=== PATIENT | male | born 1945 | race Two or more races ===

== ENCOUNTER 2024-12-12 20:48 | Inpatient (IN) | payer OTHER, MEDICAID ==
[~2024-12-12] VITALS: Ht 177.8 cm; Wt 60.0 kg
[2024-12-12 21:30] VITALS: PULSE 92; RESP 18; O2SAT 94
--- NOTE | 2024-12-12 22:11 | ED.PDOC ---
History of Present Illness HPI Comments 79-year-old male who came to ER via EMS for altered level of consciousness/fever. Patient is bed-bound with indwelling Rosales catheter. Patient accompanied by granddaughter who gives history for us. Since patient was just discharged yesterday at [facility], for UTI and sepsis, midline inserted for antibiotics. Granddaughter was concerned that patient was discharged still with fever. At home patient appeared to have a seizure episode, noted to be weak, lethargic, with an axillary temperature 102 F Chief Complaint: ALOC Time Seen by MD: 22:11 Reviewed Notes: Emergency Dispatch Operator Notes Allergies: Coded Allergies: NO KNOWN ALLERGIES (Unverified , 12/12/24) Information Source: Relative Mode of Arrival: Ambulatory Severity: Moderate Timing: Hours Duration: Since onset Past Medical History PAST MEDICAL HISTORY: CVA, UTI'S Past Medical History (Other): Bed-bound, sepsis Surgical History: Denies all surgeries Family History Family History: Reviewed,noncontributory to illness Social History Smoker: Non-Smoker Alcohol: Denies ETOH Use Drugs: Denies Drug Use Lives In: Home Constitutional: reports: fever, weakness; denies: chills, diaphoresis, fatigue, malaise, sweats, others EENTM: denies: blurred vision, double vision, ear bleeding, ear discharge, ear drainage, ear pain, ear ringing, eye pain, eye redness, hearing loss, mouth pain, mouth swelling, nasal discharge, nose bleeding, nose congestion, nose pain, photophobia, tearing, throat pain, throat swelling, voice changes, others Respiratory: reports: cough; denies: hemoptysis, orthopnea, SOB at rest, shortness of breath, SOB with excertion, stridor, wheezing, others Cardiovascular: denies: chest pain, dizzy spells, diaphoresis, Dyspnea on exertion, edema, irregular heart beat, left arm pain, lightheadedness, p alpitations, PND, syncope, others Gastrointestinal: denies: abdomen distended, abdominal pain, blood streaked bowels, constipated, diarrhea, dysphagia, difficulty swallowing, hematemesis, melena, nausea, poor appetite, poor fluid intake, rectal bleeding, rectal pain, vomiting, others Genitourinary: denies: burning, dysuria, flank pain, frequency, hematuria, incontinence, penile discharge, penile sore, pain, testicle pain, testicle swelling, urgency, others Neurological: reports: seizure; denies: dizziness, fainting, headache, left sided numbness, left sided weakness, numbness, paresthesia, pre-existing deficit, right sided numbness, right sided weakness, speech problems, tingling, tremors, weakness, others Musculoskeletal: denies: back pain, gout, joint pain, joint swelling, muscle pain, muscle stiffness, neck pain, others Integumetry: denies: bruises, change in color, change in hair/nails, dryness, laceration, lesions, lumps, rash, wounds, others Allergic/Immunocompromised: denies: Difficulty Healing, Frequent Infections, Hives, Itching, others Hematologic/Lymphatic: denies: anemia, blood clots, easy bleeding, easy bruising, swollen glands, others Endocrine: denies: excessive hunger, excessive sweating, excessive thirst, excessive urination, flushing, intolerance to cold, intolerance to heat, unexplained weight gain, unexplained weight loss, others Psychiatric: denies: anxiety, bipolar disorder, depression, hopeless, panic disorder, schizophrenia, sleepless, suicidal, others Physical Exam General Appearance: No Apparent Distress, Normal HEENT: Normal ENT Inspection, Pharynx Normal, TMs Normal Neck: Full Range of Motion, Non-Tender, Normal, Normal Inspection Respiratory: Chest Non-Tender, Lungs Clear, No Accessory Muscle Use, No Respiratory Distress, Normal Breath Sounds Cardiovascular: No Edema, No JVD, No Murmur, No Gallop, Normal Peripheral Pulses, Regular Rate/Rhythm Breast Exam: Deferred Gastrointestinal: No Organomegaly, Non Tender, No Pulsatile Mass, Normal Bowel Sounds, Soft Genitalia: Deferred Pelvic: Deferred Rectal: Deferred Extremities: No calf tenderness, Normal capillary refill, Normal inspection, Normal range of motion, Non-tender, No pedal edema Musculoskeletal : Apperance: Normal Neurologic: Alert, billing services manager II-XII nml as Tested, No Motor Deficits, Normal Affect, Normal Mood, No Sensory Deficits Cerebellar Function: Normal Reflexes: Normal Skin: Dry, Normal Color, Warm Lymphatic: No Adenopathy Was a procedure done? Was a procedure done?: No Differential Dx Considerations may include: Anemia, electrolyte imbalance, urinary tract infection, sepsis, pneumonia, bed- bound, encephalopathy X-Ray, Labs, Meds, VS Vital Signs Date Time Temp Pulse Resp B/P (MAP) Pulse Ox O2 Delivery O2 Flow Rate FiO2 12/12/24 21:30 98.0 92 18 107/70 (82) 94 98.0 12/12/24 21:30 92 18 94 Room Air* 0 21 12/12/24 20:58 95 12/12/24 20:48 99.2 93 18 107/82 96 99.2 Lab Test 12/12/24 22:08 12/12/24 22:07 Range/Units Urine Color Light-yellow Yellow Urine Clarity Clear Clear Urine pH 6.0 5.0-9.0 Urine Specific [place] 1.011 1.001-1.035 Urine Protein Negative Negative Urine Ketones Negative Negative Urine Blood Trace H Negative /uL Urine Nitrite Negative Negative Urine Bilirubin Negative Negative Urine Urobilinogen Normal Negative mg/dL Urine Leukocyte Esterase Negative Negative /uL Urine RBC 2 0 - 3 /hpf Urine Microscopic WBC 3 0-3 /HPF Urine Squamous Epithelial Cells None seen <5 /hpf Urine Bacteria None seen None Seen /hpf Urine Glucose Normal Normal mg/dL Urine Opiates Screen Neg NEGATIVE Urine Fentanyl Screen Neg NEGATIVE Urine Barbiturates Screen Neg NEGATIVE Urine Phencyclidine Screen Neg NEGATIVE Urine Amphetamines Screen Neg NEGATIVE Urine Benzodiazepines Screen Neg NEGATIVE Urine Cocaine Screen Neg NEGATIVE Urine Cannabinoids Screen Pos NEGATIVE Influenza Type A Antigen Negative Negative Influenza Type B Antigen Negative Negative SARS-CoV-2 Antigen (Rapid) Positive *A NEGATIVE White Blood Count 4.9 4.4-10.8 10^3/uL Red Blood Count 3.91 L 4.5-5.90 10^6/uL Hemoglobin 11.0 L 13.5-17.5 g/dL Hematocrit 32.3 L 41.0-53.0 % Mean Corpuscular Volume 82.7 80.0-100.0 fL Mean Corpuscular Hemoglobin 28.0 28.0-32.0 pg Mean Corpuscular Hemoglobin Concent 33.9 32.0-36.0 g/dL Red Cell Distribution Width 17.0 H 11.8-14.3 % Platelet Count 230 140-450 10^3/uL Mean Platelet Volume 7.1 6.9-10.8 fL Neutrophils (%) (Auto) 78.8 37.0-80.0 % Lymphocytes (%) (Auto) 8.9 L 10.0-50.0 % Monocytes (%) (Auto) 11.7 0.0-12.0 % Eosinophils (%) (Auto) 0.1 0.0-7.0 % Basophils (%) (Auto) 0.5 0.0-2.0 % Neutrophils # (Auto) 3.8 1.6-8.6 10 ^3/uL Lymphocytes # (Auto) 0.4 0.4-5.4 10 ^3/uL Monocytes # (Auto) 0.6 0-1.3 10 ^3/uL Eosinophils # (Auto) 0 0-0.8 10 ^3/uL Basophils # (Auto) 0 0-0.2 10 ^3/uL Nucleated Red Blood Cells 0.2 % Sodium Level 132 L 136-145 mmol/L Potassium Level 3.8 3.5-5.1 mmol/L Chloride Level 98 98-107 mmol/L Carbon Dioxide Level 25 20-31 mmol/L Anion Gap 9 5-15 Blood Urea Nitrogen 16 9-23 mg/dL Creatinine 0.81 0.700-1.30 mg/dL Glomerular Filtration Rate Calc 90 >90 mL/min BUN/Creatinine Ratio 19.8 10.0-20.0 Serum Glucose 190 H 74-106 mg/dL Lactic Acid Level 1.0 0.4-2.0 mmol/L Calcium Level 8.7 8.7-10.4 mg/dL Magnesium Level 1.9 1.6-2.6 mg/dL Total Bilirubin 0.4 0.2-1.0 mg/dL Aspartate Amino Transferase (AST) 42 H 13-40 U/L Alanine Aminotransferase (ALT) 22 7-40 U/L Alkaline Phosphatase 106 46-116 U/L Total Protein 6.5 5.7-8.2 g/dL Albumin 3.6 3.2-4.8 g/dL Current Medications Medications (Trade) Dose Ordered Sig/Mike Route Start Time Stop Time Status Last Admin Sodium Chloride 1,000 ml @ 1,000 mls/hr Q1H ONCE IVB 12/12/24 22:00 12/12/24 22:59 DC 12/12/24 22:27 Piperacillin Sod/ Tazobactam Sod 100 ml @ 100 mls/hr ONCE ONCE IV 12/12/24 22:00 12/12/24 22:59 DC 12/12/24 22:28 Time of 1ST Reevaluation: 22:06 Reevaluation 1ST: Unchanged Patient Education/Counseling: Diagnosis, Treatment Family Education/Counseling: Diagnosis, Treatment SEPSIS Sepsis Screen Date sepsis recognized/suspect: Dec 12, 2024 Time Sepsis recognized/suspect: 2129 Recent Procedure: No On Antibiotic Therapy: No Respiratory Rate >20: No Heart Rate >90: Yes Temp<36 C (96.8 F) or >38.3 C: No SBP <90 or MAP <65 mmHG: No New Acute Mental Status Change: No Is the patient on CPAP, BIPAP,: No Physician Orders Electrocardigram (12/12/24 21:14) Blood Culture (12/12/24 21:51) Chest Portable (12/12/24 21:51) Head Without Contrast (12/12/24 21:51) Vital Signs Date Time Temp Pulse Resp B/P (MAP) Pulse Ox O2 Delivery O2 Flow Rate FiO2 12/12/24 21:30 98.0 92 18 107/70 (82) 94 98.0 12/12/24 21:30 92 18 94 Room Air* 0 21 12/12/24 20:58 95 12/12/24 20:48 99.2 93 18 107/82 96 99.2 Laboratory Tests Test 12/12/24 22:07 Lactic Acid Level 1.0 mmol/L (0.4-2.0) White Blood Count 4.9 10^3/uL (4.4-10.8) Medications Medications Dose Ordered Sig/Mike Route Start Time Stop Time Status Last Admin Dose Admin Piperacillin Sod/ Tazobactam Sod 100 ml @ 100 mls/hr ONCE ONCE IV 12/12/24 22:00 12/12/24 22:59 DC 12/12/24 22:28 Sodium Chloride 1,000 ml @ 1,000 mls/hr Q1H ONCE IVB 12/12/24 22:00 12/12/24 22:59 DC 12/12/24 22:27 Departure 1 Departure Time of Disposition: 23:48 Impression: Primary Impression: Metabolic encephalopathy Additional Impression: COVID-19 Disposition: 09 ADMITTED INPATIENT Admit to: Med Surg Condition: Guarded Discharged With: Self Comments Patient has been receiving IV antibiotics at home for UTI. 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 Lab work shows COVID positive. Patient noted to have a cough and chest congestion on exam. Patient will need to be admitted for metabolic encephalopathy and COVID positive Critical Care Note Critical Care Time?: Yes (35 min-critical care time only) Critical care comment: Total critical care time: Approximately 36 minutes Due to a high probability of clinically significant, life threatening deterioration, the patient required my highest level of preparedness to intervene emergently and I personally spent this critical care time directly and personally managing the patient. This critical care time included obtaining a history; examining the patient; pulse oximetry; ordering and review of studies; arranging urgent treatment with development of a management plan; evaluation of patient's response to treatment; frequent reassessment; and, discussions with other providers. This critical care time was performed to assess and manage the high probability of imminent, life-threatening deterioration that could result in multi-organ failure. It was exclusive of separately billable procedures and treating other patients. Stability Stability form required: No Heart Score Heart Score: Heart Score Response (Comments) Value History N/A 0 EKG N/A 0 Age N/A 0 Risk Factors N/A 0 Troponin N/A 0 Total 0 I personally scribed for LADY HERNANDEZ MD ([email or web address]) on 12/12/24 at 22:11. Electronically submitted by Antonio Antony ([facility]). LADY HERNANDEZ MD Dec 12, 2024 22:11
[2024-12-12 22:23] LABS: Hematocrit 32.3 % (41.0-53.0); Hemoglobin 11.0 g/dL (13.5-17.5); Mean Corpuscular Hemoglobin 28.0 pg (28.0-32.0); Mean Corpuscular Volume 82.7 fL (80.0-100.0); Nucleated Red Blood Cells % 0.2 %
[2024-12-12] MEDS: SODIUM CHLORIDE 0.9% 1,000 ML IVB ONE (22:27)
[2024-12-12] MEDS: PIPERACILLIN-TAZOB 3.375GM 100 ML IV ONE (22:28)
[2024-12-12 22:35] LABS: Alanine Aminotransferase 22 U/L (7-40); Albumin 3.6 g/dL (3.2-4.8); Alkaline Phosphatase 106 U/L (46-116); Anion Gap 9 (5-15); BUN/Creatinine Ratio 19.8 (10.0-20.0); Blood Urea Nitrogen 16 mg/dL (9-23); Calcium 8.7 mg/dL (8.7-10.4); Carbon Dioxide 25 mmol/L (20-31); Chloride 98 mmol/L (98-107); Glucose 190 mg/dL (74-106); Magnesium 1.9 mg/dL (1.6-2.6); Potassium 3.8 mmol/L (3.5-5.1); Sodium 132 mmol/L (136-145); Total Protein 6.5 g/dL (5.7-8.2)
[2024-12-12 22:36] LABS: Bilirubin, Total 0.4 mg/dL (0.2-1.0)
[2024-12-12 22:59] LABS: Cannabinoid Screen, Urine Pos (NEGATIVE)
[2024-12-12 23:00] LABS: Urine Protein, UAD Negative (Negative)
[2024-12-12 23:01] LABS: Amphetamine Screen, Urine Neg (NEGATIVE); Barbiturate Scree,Urine Neg (NEGATIVE); Benzodiazephine Screen, Urine Neg (NEGATIVE); Cocaine Screen, Urine Neg (NEGATIVE); Opiate Scree,Urine Neg (NEGATIVE); Phencyclidine Screen, Urine Neg (NEGATIVE)
--- NOTE | 2024-12-12 23:01 | DVH ---
CHEST RADIOGRAPH Indication: SOB Technique: 1 view Comparison: None FINDINGS: Lines and Tubes: None Lungs/Pleura: Left basilar patchy opacity. Other areas of linear and branching reticular opacities. No evident pleural effusion or pneumothorax. Cardiomediastinum: Normal heart size. Other: No acute osseous abnormality. IMPRESSION: 1. Scattered reticular opacities and left basilar consolidation may be acute or chronic ; multifocal pneumonia is possible in the appropriate clinical setting. No comparison exams are available to asses s for stability.
--- NOTE | 2024-12-12 23:05 | DVH ---
EXAM: CT HEAD WITHOUT CONTRAST INDICATION: ALOC TECHNIQUE: CT of the head without intravenous contrast. Radiation Dose : 1. Head: CT Dose: CTDI volume is 62.64 mGy. Dose-length product is 1232.47 mGy*cm The dose indicators for CT are the volume Computed Tomography (CT) Dose Index (CTDIvol) and the Dose Length Product (DLP), and are measured in units of mGy and mGy-cm, respectively. These indicators are not patient dose, but values generated from the CT scanner acquisition factors. The report includes radiation exposure data for exposures received during this examination. COMPARISON: None FINDINGS: Brain: No acute hemorrhage, mass effect, or cerebral edema. Extensive confluence periventricular whit e matter hypodensity with moderate to severe parenchymal volume loss. Foci of encephalomalacia within the left anterior frontal white matter, right occipital lobe, and left cerebellum CSF Spaces: Moderate symmetric enlargement. Bones/Soft Tissues: No acute findings. Orbits/Sinuses/Mastoids: No acute findings. Postsurgical changes of the anterior globes. IMPRESSION: 1. No acute intracranial abnormality. 2. 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 Radiation optimization: All CT scans at this facility use at least one of these dose optimization tonja hniques: automated exposure control mA and/or kV adjustment per patient size (includes targeted exam s where dose is matched to clinical indication) or iterative reconstruction.
[2024-12-12 23:22] LABS: COVID19 ANTIGEN SOFIA FIA POSITIVE (NEGATIVE)
[2024-12-12 23:45] VITALS: PULSE 78; RESP 16; O2SAT 100
[2024-12-13] MEDS ORDERED: ACETAMINOPHEN 325 MG TAB PO PRN (03:15)
[2024-12-13] MEDS ORDERED: HYDROcodone-ACET 5/325MG TAB PO PRN (03:15)
[2024-12-13] MEDS ORDERED: DOCUSATE SOD 100 MG CAP PO PRN (03:15)
[2024-12-13 05:14] LABS: Alanine Aminotransferase 20 U/L (7-40); Alkaline Phosphatase 92 U/L (46-116); Anion Gap 8 (5-15); BUN/Creatinine Ratio 21.5 (10.0-20.0); Blood Urea Nitrogen 14 mg/dL (9-23); Carbon Dioxide 25 mmol/L (20-31); Chloride 100 mmol/L (98-107); Potassium 3.7 mmol/L (3.5-5.1); Total Protein 5.9 g/dL (5.7-8.2)
[2024-12-13 05:15] LABS: Albumin 3.3 g/dL (3.2-4.8)
[2024-12-13 05:16] LABS: Bilirubin, Total 0.4 mg/dL (0.2-1.0)
[2024-12-13 05:21] LABS: Calcium 8.3 mg/dL (8.7-10.4); Glucose 182 mg/dL (74-106); Sodium 133 mmol/L (136-145)
[2024-12-13 05:25] LABS: Hematocrit 31.1 % (41.0-53.0); Hemoglobin 10.5 g/dL (13.5-17.5); Mean Corpuscular Hemoglobin 27.8 pg (28.0-32.0); Mean Corpuscular Volume 82.4 fL (80.0-100.0)
[2024-12-13 06:09] LABS: Total Cells Counted 100.0 (100)
[2024-12-13] MEDS ORDERED: REMDESIVIR PER PHARMACY 0 ML IV SCH (06:30)
[2024-12-13] MEDS ORDERED: DEXTROSE (50%) 50ML SYRG IV PRN (06:45)
--- NOTE | 2024-12-13 06:58 | DVHHPRES ---
History of Present Illness Resident Creating Document: LUCAS MARTIN RESIDENT History of Present Illness History of Present Illness (HPI): Steffen Solis is a 79-year-old male who presented to the ED with progressive dyspnea, fever, lethargy, and confusion, 72 hours after discharge from a recent hospitalization for urosepsis treated with IV ertapenem via midline. On admission, diagnosed with COVID-19 pneumonia, acute hypoxic respiratory failure on (3 L/min), sepsis secondary to prior hospital- acquired pneumonia and partially treated ESBL UTI, metabolic encephalopathy, hypovolemic hyponatremia, and transaminitis requring inpatient admission for acute medical management. 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 Past Surgical History (PSH): left knee replacement 7 years ago OBGYN Hx in Females: Noncontributory Family history (FH): Noncontributory EtOH: denies alcohol use Smoking /Vaping: denies smoking Recreational Drugs: denies use of recreational drugs Residence: lives at home with family Home Medications: Keppra, Plavix, atorvastatin, meclizine, Flomax Allergies: no known allergies PCP: Dr. Kendall Stephens Domestic Violence: Neg Review of Systems Review of Systems General: Complains of chills HEENT: No headaches, visual changes, hearing loss, tinnitus, nasal congestion and discharge, and sore throat. Cardiovascular: Denies chest pain, palpitations, dyspnea on exertion, orthopnea, or claudication. Respiratory: No cough, and wheezing. Gastrointestinal: Denies nausea, vomiting, dysphagia, odynophagia, heartburn, abdominal pain, flatulence, bloating, diarrhea, constipation, change in stool, or blood in stool. Genitourinary: No dysuria, hematuria, discharge, frequency, urgency, nocturia, incontinence, and urinary retention. Endocrine: No heat or cold intolerance, polydipsia, polyuria, and polyphagia. Neurological: Complains of dizziness, extremity weakness and numbness, tremors, gait disturbance, seizures, and memory impairment. Psychiatric: Denies depression, anxiety,or insomnia. Musculoskeletal: Denies neck pain, stiffness and swelling, back pain, muscle weakness, joint pain, stiffness, swelling, or limited range of motion. Skin: No rashes, itching, skin lesion, changes in hair, nail, skin texture and breast. Hematologic/Lymphatic: Denies easy bruising, bleeding tendencies, or lymph node enlargement. Allergies: Coded Allergies: NO KNOWN ALLERGIES (Unverified , 12/12/24) Medications Current Medications Medications Dose Ordered Sig/Mike Route Start Time Stop Time Status Last Admin Dose Admin Acetaminophen 325 mg Q4HP PRN PO 12/13/24 03:15 UNV Acetaminophen/ Hydrocodone Bitart 1 tab Q4HP PRN PO 12/13/24 03:15 UNV Docusate Sodium 100 mg BIDPRN PRN PO 12/13/24 03:15 UNV Exam Vital Signs Vital Signs Date Time Temp Pulse Resp B/P (MAP) Pulse Ox O2 Delivery O2 Flow Rate FiO2 12/13/24 00:01 89 12/12/24 23:45 16 100 Nasal Cannula* 3 32 12/12/24 23:45 98.0 108/68 (81) 98.0 Exam General Appearance: Alert, Oriented X3, Cooperative, No acute distress HEENT: Atraumatic, PERRLA, EOMI, Mucous membrane moist/pink Respiratory: Clear to auscultation, Normal air movement Cardiovascular: Regular rate, Normal S1, Normal S2, No murmurs, no chest wall tenderness Abdominal: No abdominal tenderness, Normal bowel sounds, Soft,No hepatospenomegaly, No masses, sacral decubitus ulcer stage II (present on admission) Extremities: No clubbing, No cyanosis, No edema, Normal pulses, No tenderness/swelling Skin: No rashes, No breakdown, No significant lesion Neuro: Gait not elicited, Normal speech, Normal tone, Sensation intact, Cranial nerves 3-12 NL, Reflexes 2+, residual left eye blindness Psych/Mental Status: Mental status NL, Mood NL Labs/Xrays Labs Test 12/12/24 22:08 12/12/24 22:07 Range/Units Urine Color Light-yellow Yellow Urine Clarity Clear Clear Urine pH 6.0 5.0-9.0 Urine Specific [place] 1.011 1.001-1.035 Urine Protein Negative Negative Urine Ketones Negative Negative Urine Blood Trace H Negative /uL Urine Nitrite Negative Negative Urine Bilirubin Negative Negative Urine Urobilinogen Normal Negative mg/dL Urine Leukocyte Esterase Negative Negative /uL Urine RBC 2 0 - 3 /hpf Urine Microscopic WBC 3 0-3 /HPF Urine Squamous Epithelial Cells None seen <5 /hpf Urine Bacteria None seen None Seen /hpf Urine Glucose Normal Normal mg/dL Urine Opiates Screen Neg NEGATIVE Urine Fentanyl Screen Neg NEGATIVE Urine Barbiturates Screen Neg NEGATIVE Urine Phencyclidine Screen Neg NEGATIVE Urine Amphetamines Screen Neg NEGATIVE Urine Benzodiazepines Screen Neg NEGATIVE Urine Cocaine Screen Neg NEGATIVE Urine Cannabinoids Screen Pos NEGATIVE Influenza Type A Antigen Negative Negative Influenza Type B Antigen Negative Negative SARS-CoV-2 Antigen (Rapid) Positive *A NEGATIVE White Blood Count 4.9 4.4-10.8 10^3/uL Red Blood Count 3.91 L 4.5-5.90 10^6/uL Hemoglobin 11.0 L 13.5-17.5 g/dL Hematocrit 32.3 L 41.0-53.0 % Mean Corpuscular Volume 82.7 80.0-100.0 fL Mean Corpuscular Hemoglobin 28.0 28.0-32.0 pg Mean Corpuscular Hemoglobin Concent 33.9 32.0-36.0 g/dL Red Cell Distribution Width 17.0 H 11.8-14.3 % Platelet Count 230 140-450 10^3/uL Mean Platelet Volume 7.1 6.9-10.8 fL Neutrophils (%) (Auto) 78.8 37.0-80.0 % Lymphocytes (%) (Auto) 8.9 L 10.0-50.0 % Monocytes (%) (Auto) 11.7 0.0-12.0 % Eosinophils (%) (Auto) 0.1 0.0-7.0 % Basophils (%) (Auto) 0.5 0.0-2.0 % Neutrophils # (Auto) 3.8 1.6-8.6 10 ^3/uL Lymphocytes # (Auto) 0.4 0.4-5.4 10 ^3/uL Monocytes # (Auto) 0.6 0-1.3 10 ^3/uL Eosinophils # (Auto) 0 0-0.8 10 ^3/uL Basophils # (Auto) 0 0-0.2 10 ^3/uL Nucleated Red Blood Cells 0.2 % Sodium Level 132 L 136-145 mmol/L Potassium Level 3.8 3.5-5.1 mmol/L Chloride Level 98 98-107 mmol/L Carbon Dioxide Level 25 20-31 mmol/L Anion Gap 9 5-15 Blood Urea Nitrogen 16 9-23 mg/dL Creatinine 0.81 0.700-1.30 mg/dL Glomerular Filtration Rate Calc 90 >90 mL/min BUN/Creatinine Ratio 19.8 10.0-20.0 Serum Glucose 190 H 74-106 mg/dL Lactic Acid Level 1.0 0.4-2.0 mmol/L Calcium Level 8.7 8.7-10.4 mg/dL Magnesium Level 1.9 1.6-2.6 mg/dL Total Bilirubin 0.4 0.2-1.0 mg/dL Aspartate Amino Transferase (AST) 42 H 13-40 U/L Alanine Aminotransferase (ALT) 22 7-40 U/L Alkaline Phosphatase 106 46-116 U/L Total Protein 6.5 5.7-8.2 g/dL Albumin 3.6 3.2-4.8 g/dL SEPSIS Sepsis Screen Date sepsis recognized/suspect: Dec 12, 2024 Time Sepsis recognized/suspect: 2129 Recent Procedure: No On Antibiotic Therapy: No Respiratory Rate >20: No Heart Rate >90: Yes Temp<36 C (96.8 F) or >38.3 C: No SBP <90 or MAP <65 mmHG: No New Acute Mental Status Change: No Is the patient on CPAP, BIPAP,: No Physician Orders Electrocardigram (12/12/24 21:14) Blood Culture (12/12/24 21:51) Chest Portable (12/12/24 21:51) Head Without Contrast (12/12/24 21:51) Urine Bacterial Culture (12/13/24 02:52) Admit (12/13/24 03:10) Allergies (12/13/24 03:10) Code Status (12/13/24 03:10) Acetaminophen Tablet (Tylenol Tablet) (12/13/24 03:15) Hydrocodone-Acet 5/325mg Tab ([place] 5/32 (12/13/24 03:15) Docusate Sodium Capsule (Colace Capsule) (12/13/24 03:15) Fall Risk Precautions In Place QSHIFT (12/13/24 03:10) Complete Blood Count (12/13/24 03:10) Comprehensive Metabolic Panel (12/13/24 03:10) Cardiac Diet-2gna,Lofat,Lochol (12/13/24 Breakfast) Condition: Fair (12/13/24 03:10) Stat Ekg For Chest Pain (12/13/24 03:10) Vital Signs Date Time Temp Pulse Resp B/P (MAP) Pulse Ox O2 Delivery O2 Flow Rate FiO2 12/13/24 00:01 89 12/12/24 23:45 78 16 100 Nasal Cannula* 3 32 12/12/24 23:45 98.0 91 12 108/68 (81) 94 98.0 12/12/24 21:30 98.0 92 18 107/70 (82) 94 98.0 12/12/24 21:30 92 18 94 Room Air* 0 21 12/12/24 20:58 95 12/12/24 20:48 99.2 93 18 107/82 96 99.2 Laboratory Tests Test 12/12/24 22:07 Lactic Acid Level 1.0 mmol/L (0.4-2.0) White Blood Count 4.9 10^3/uL (4.4-10.8) Medications Medications Dose Ordered Sig/Mike Route Start Time Stop Time Status Last Admin Dose Admin Piperacillin Sod/ Tazobactam Sod 100 ml @ 100 mls/hr ONCE ONCE IV 12/12/24 22:00 12/12/24 22:59 DC 12/12/24 22:28 100 MLS/HR Sodium Chloride 1,000 ml @ 1,000 mls/hr Q1H ONCE IVB 12/12/24 22:00 12/12/24 22:59 DC 12/12/24 22:27 1,000 MLS/HR Assessment/Plan Assessment/Plan # COVID-19 Pneumonia: isolation, follow esr crp, ensure vaccination # Acute hypoxic respiratory failure likely due to above: on 3l, baseline room air, dexamethasone 6 mg daily x 10 days / till oxygen is weaned off, maintain oxygen saturation above 94% # Atypical superimposed bacterial pneumonia including legionella to rule out: follow tests # Partially treated ESBL UTI, on home Ertapenem since 12/11: continue in hospital via midline # Normocytic anemia present on admission: CBC f/u # Metabolic and/or Toxic encephalopathy: rule out recurrent stroke and treat underlying pathology, risk mitigation of delirium # History of Iron deficiency anemia, corrected # Mild hyponatremia, likely hypovolemic: Isotonic fluid replacement, follow up daily bmp # Active Cannabinoid abuse: cessation counseling done. # Overflow incontinence with underlying Benign prostatic hyperplasia: Rosales's in place for incontinence, outpatient urology follow up, continue meds # Essential HTN: Target blood [id number], continue home Meds, salt restriction # Type 2 Diabetes Mellitus: Hold home metformin, ssi target BG 140-180 # GERD: continue PPI # Sacral decubitus ulcer stage II (present on admission): wound consult, assessment and outpatient care, consider graft replacement, continue nutrition, look for infection, as needed cx # Chronic back pain, likely musculoskeletal pain: continue bethanechol # Dyslipidemia: continue statin # Carotid artery stenosis # H/o Stroke with residual visual deficit: on aspirin and clopidogrel with statin, continue, neurochecks # H/o Seizures: continue medications, no breakthrough, seizure precautions. # Surgical history of left knee replacement # Mild transaminitis: follow liver function test # Borderline left axis deviation, otherwise NSR: continue telemetry, correct electrolytes. # Aortic root dilatation # Mild concentric LVH # Mild aortic sclerosis # Mild mitral annular calcification # Mild TR PUD prophylaxis: not needed DVT prophylaxis: dual antiplatelets Barriers to discharge: Medical diagnosis and management in progress. Patient lives with self / family. Need person support for ADL. PCP: Dr. Kendall Stephens Specialist Relevant To Admission: Urology, NOT consulted. outpatient follow up. Case discussed with Dr. Rangel. Code Status: Full Code. Complex patient care discussion needed. Spend total 35 minutes for bedside assessment, case discussion and management. Plan discussed with: Patient, Other (Granddaughter) My Orders Orders - LUCAS MARTIN RESIDENT Procedure Category Date Status Time Urine Bacterial MARY 12/13/24 Logged Culture 02:52 Admit ADMIT 12/13/24 Transmitted 03:10 Allergies FRANCK 12/13/24 In Process 03:10 Code Status CODE 12/13/24 Transmitted 03:10 Acetaminophen Tablet PHA 12/13/24 Logged (Tylenol Tablet) 03:15 Hydrocodone-Acet PHA 12/13/24 Logged 5/325mg Tab ([place] 03:15 Docusate Sodium PHA 12/13/24 Logged Capsule (Colace 03:15 Fall Risk Precautions FRANCK 12/13/[address] 03:10 Complete Blood Count LAB 12/13/24 Logged 03:10 Comprehensive LAB 12/13/24 Logged Metabolic Panel 03:10 Cardiac DIET 12/13/24 Transmitted Diet-2gna,Lofat,Lochol Breakfast Condition: Fair FRANCK 12/13/24 In Process 03:10 Stat Ekg For Chest FRANCK 12/13/24 In Process Pain 03:10 Date of Service: Dec 13, 2024 Billing Provider: STEVEN RANGEL MD Common Visit Codes: [id number] INP/OBS CARE (HIGH) Secondary Visit Codes: [id number] CARE PLAN 30 MINUTES LUCAS MARTIN RESIDENT Dec 13, 2024 03:41 TANYA FITCH RESIDENT Dec 13, 2024 06:34
[2024-12-13] MEDS: ACCU-CHEK COMFORT CURVE STRIP VI SCH (08:10)
[2024-12-13] MEDS: InsuLIN REG 1unit/0.01ml Soln (100units/ml) SC SCH (08:21)
[2024-12-13] MEDS: levETIRAcetam 500 MG TAB PO ONE (08:22)
--- NOTE | 2024-12-13 09:46 | DVHPNRES ---
Progress Note Date Seen: Dec 13, 2024 Resident Creating Document: ESTEFANIA WALSH RESIDENT Medical Necessity Reason Pt with a Central, PICC or Fol: Yes The following are medically ne: Rosales Catheter Subjective Review of Systems Steffen Solis is a 79-year-old male who presents to the ED with complaints of progressive dyspnea in Functional Class IV associated with, fever, lethargy and confusion. Due to clinical presentation, obtain past relevant history from EMR. Patient had a recent hospitalization due to urosepsis completing IV antibiotics with ertapenem through midline, he was discharged 72 hours before his admission. Could not obtain review of systems due to clinical status. Past medical history: Hypertension, dyslipidemia, diabetes, carotid stenosis with CVA complicated with seizure disorder in currently bed-bound and visual acuity deficit, multiple UTI with recent hospitalization three days ago due to urosepsis currently on IV antibiotic (ertapenem) through midline, benign prostatic hyperplasia with indwelling urinary cath. Surgical history: left knee replacement 7 years ago Family history: Noncontributory Social history: Per notes lives at home. Denies current tobacco, alcohol and other drug abuse. UDS was positive for marijuana. Allergic history: Denies Home medication: Keppra, Plavix, atorvastatin, meclizine, Flomax Patient seen and examined at bedside. Currently patient has no new complaints, he is oriented to self and place (not time). Continues with requirement of oxygen therapy through nasal cannula. Talked to granddaughter at bedside. Objective vital signs Vital Sign Date Time Temp Pulse Resp B/P (MAP) Pulse Ox O2 Delivery O2 Flow Rate FiO2 12/13/24 08:00 Nasal Cannula* 3 32 12/13/24 08:00 99.3 96 18 113/70 (84) 97 99.3 Total Intake and Output 12/12/24 12/12/24 12/13/24 15:00 23:00 07:00 Output Total 300 ml Balance -300 ml medications Current Medications Medications Dose Ordered Sig/Mike Route Start Time Stop Time Status Last Admin Dose Admin Acetaminophen 325 mg Q4HP PRN PO 12/13/24 03:15 Acetaminophen/ Hydrocodone Bitart 1 tab Q4HP PRN PO 12/13/24 03:15 Docusate Sodium 100 mg BIDPRN PRN PO 12/13/24 03:15 Levetiracetam 500 mg BID PO 12/13/24 10:00 Clopidogrel Bisulfate 75 mg DAILY PO 12/13/24 10:00 Meclizine HCl 25 mg DAILY PO 12/13/24 10:00 Tamsulosin HCl 0.4 mg DAILY PO 12/13/24 10:00 Dexamethasone 6 mg DAILY PO 12/14/24 10:00 Remdesivir 0 ml @ 0 mls/hr PER PHARMACY IV 12/13/24 06:30 12/15/24 06:31 UNV Ertapenem 1 gm/ Sodium Chloride 50 ml @ 100 mls/hr DAILY IV 12/13/24 10:00 Atorvastatin Calcium 40 mg DAILY PO 12/13/24 10:00 Enoxaparin Sodium 40 mg DAILY SC 12/13/24 10:00 Levetiracetam 500 mg BID PO 12/13/24 22:00 Famotidine 20 mg Q12HR PO 12/13/24 10:00 Diagnostic Test (Pha) 1 strip ACHS 12/13/24 07:00 12/13/24 08:10 1 STRIP Insulin Human Regular ACHS SC 12/13/24 07:00 12/13/24 08:21 3 UNITS Dextrose 50 ml UD PRN IV 12/13/24 06:45 Examination Patient lying in bed, in no acute distress General: Somnolent, cachectic, chirinos, afebrile, mucosae are moist Cardiovascular: Normal S1 and S2. No murmurs, gallops or rubs Respiratory: Regular ventilation mechanics. Coarse rhonchus in bilateral lung dai. Currently on oxygen therapy through nasal cannula at 3 L/min Abdomen: Soft, nontender, no organomegaly, normal bowel sounds MSK/skin: Mobilizes 4 limbs. Skin is dry and warm. Sacral wound stage two present on admission. Neurological: Oriented in 2 spheres (not time). No motor no sensitive deficits. Pupils are isocoric and reactive laboratory and microbiology Laboratory Tests 12/13/24 03:52 Test 12/13/24 03:52 Range/Units Serum Glucose 182 H 74-106 mg/dL Problem List/Assessment/Plan Problem List/Assessment/Plan ASSESSMENT Acute hypoxic respiratory failure secondary to pneumonia Sepsis due to hospital-acquired pneumonia and UTI Hospital-acquired multifocal pneumonia - COVID, rule out superimposed bacterial infection Metabolic encephalopathy secondary to sepsis ESBL UTI Hypovolemic hyponatremia Transaminitis Foleys for incontinent, BPH: ESBL UTI Ertepenam 12/11 contin ue Essential HTN Diabetes-uncontrolled (hemoglobin A1c 8.1%) Chronic back pain Iron deficiency normocytic anemia Dyslipidemia Carotid artery stenosis Sacral decubitus ulcer stage II - present on admission H/o Stroke with residual visual deficit and bed-bound H/o Seizures H/o left knee replacement Cannabinoid abuse PLAN Patient currently under IV antibiotics and antiviral (remdesivir and ertapenem since 12/11). We will evaluate escalating with vancomycin, pending MRSA swab. Ordered echocardiogram to evaluate LVEF and rule out vegetations. Pending culture results (sputum, blood, urine and wound) On oxygen therapy with nasal cannula 3 L/min and dexamethasone 6 mg IV daily. Completed head CT which showed no acute findings. Continue home medication (Keppra, clopidogrel and statins) Goals of care discussed with patient and granddaughter for over 18 minutes: Full code status. Discussed plan with Dr. Smart, patient and nurses: Continue with IV fluids, antibiotic treatment and oxygen therapy. Pending culture results. Patient has poor prognosis due to multiple commodities and recent hospitalization. Plan discussed with: Patient, Daughter (Did not answer phone call), Other (Nurse and granddaughter (did not answer phone call)) Date of Service: Dec 13, 2024 Billing Provider: AARON SMART MD Common Visit Codes: [id number] INP/OBS CARE(HIGH) ESTEFANIA WALSH RESIDENT Dec 13, 2024 09:46 AARON SMART MD Dec 20, 2024 21:21
[2024-12-13] MEDS ORDERED: ATORVASTATIN 20 MG TAB PO SCH (10:00)
[2024-12-13] MEDS: levETIRAcetam 500 MG TAB PO SCH (10:00)
[2024-12-13] MEDS: TAMSULOSIN HYDROCHLORIDE 0.4 MG CAP PO SCH (11:02)
[2024-12-13] MEDS: FAMOTIDINE 20 MG TAB PO SCH (11:02)
[2024-12-13] MEDS: ATORVASTATIN 20 MG TAB PO SCH (11:03)
[2024-12-13] MEDS: MECLIZINE HCL 25 MG TAB PO SCH (11:03)
[2024-12-13] MEDS: CLOPIDOGREL BISULFATE 75 MG TAB PO SCH (11:03)
[2024-12-13] MEDS: ENOXAPARIN SOD 40 MG/0.4 ML SYRINGE SC SCH (11:04)
[2024-12-13] MEDS: ERTAPENEM SOD INJ 1 GM in SODIUM CHL 0.9% 50 ML IV SCH (12:39)
[2024-12-13] MEDS: REMDESIVIR 200mg in NS 210mL LOADING DOSE ADULT IV ONE (12:40)
[2024-12-13 16:17] VITALS: BP 107/75; PULSE 85; RESP 18; TEMP 97.5; O2SAT 95
[2024-12-13 17:00] VITALS: BP 107/75; PULSE 93; RESP 16; TEMP 97.5; O2SAT 96
[2024-12-13 20:00] VITALS: PULSE 108
[2024-12-13 21:00] VITALS: BP 122/80; PULSE 108; RESP 19; TEMP 98.8; O2SAT 93
[2024-12-13] MEDS ORDERED: levETIRAcetam 500 MG TAB PO SCH (22:00)
--- NOTE | 2024-12-13 23:24 | ECG ---
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
[2024-12-14 01:00] VITALS: BP 104/65; PULSE 108; RESP 16; TEMP 97.9; O2SAT 92
[2024-12-14 05:00] VITALS: BP 103/44; PULSE 117; RESP 17; TEMP 98.2; O2SAT 95
[2024-12-14 08:00] VITALS: PULSE 65; RESP 18
[2024-12-14] MEDS ORDERED: SODIUM CHLORIDE 0.9% 500 ML IV ONE (08:15)
[2024-12-14] MEDS: SODIUM CHLORIDE 0.9% 500 ML IV ONE (08:30)
[2024-12-14 09:00] VITALS: BP 81/40; PULSE 96; RESP 16; TEMP 100.1; O2SAT 94
--- NOTE | 2024-12-14 10:36 | DVH ---
CHEST RADIOGRAPH Indication: pneumonia Technique: Single frontal view of the chest was obtained COMPARISON: XY CHEST PORTABLE on DOS: 12/12/24 FINDINGS: Lines and Tubes: None Lungs: No consolidation. Slight clearing of the atelectasis of the left lung base when compared to the prior exam. Pleura: No effusion. No pneumothorax. Cardiomediastinal contours: Unremarkable Bones: Unremarkable IMPRESSION: 1. No acute disease.
[2024-12-14 10:49] LABS: Hematocrit 38.2 % (41.0-53.0); Hemoglobin 12.7 g/dL (13.5-17.5); Mean Corpuscular Hemoglobin 27.9 pg (28.0-32.0); Mean Corpuscular Volume 84.1 fL (80.0-100.0); Nucleated Red Blood Cells % 0.0 %
[2024-12-14 10:55] LABS: Chloride 102 mmol/L (98-107); Potassium 4.0 mmol/L (3.5-5.1); Sodium 137 mmol/L (136-145)
[2024-12-14 10:56] LABS: Anion Gap 12 (5-15); Carbon Dioxide 23 mmol/L (20-31)
[2024-12-14 11:01] LABS: BUN/Creatinine Ratio 25.2 (10.0-20.0); Blood Urea Nitrogen 26 mg/dL (9-23); Calcium 8.2 mg/dL (8.7-10.4); Glucose 125 mg/dL (74-106)
[2024-12-14 13:00] VITALS: BP 92/57; PULSE 107; RESP 17; TEMP 98.8; O2SAT 96
--- NOTE | 2024-12-14 13:19 | DVHSR ---
APPROVED REPORT EXAM: Two-dimensional and M-mode echocardiogram with Doppler and color Doppler. Blood Pressure: 108/68 mmHg INDICATION Rule out structural heart disease RISK FACTORS Height: 70, Weight: 132 DIMENSIONS LVDd4.0 (3.8-5.7cm)LA (2D) (1.9-4.0cm)Aortic Root3.9 (2.0-3.7cm) LVDs2.5 (2.5-4.0cm)LA (MM) (1.9-4.0cm)Aortic Cusp Exc0.7 (1.5-2.0cm) EF (%) 70.0 (55-70%)Rt. Atrium (1.9-4.0cm)Asc. Aorta cm Mitral Valve MitralMitral Stenosis E wave0.58m/sMV Mean GR.mmHg A wave1.02m/sMV Peak GR.96mmHg E/A ratio0.62D MVAcm2 DECEL [id number] 1/2 [id number] IVRTmsDop MVA3.61cm2 Aortic Valve Aortic ValveAortic Stenosis V10.74m/Cristiano Mean GR.3mmHg V21.24m/Cristiano Peak GR.6mmHg LVOT Diameter2.1 (1.8-2.4cm)Doppler AVA2.07cm2 Pulmonic Valve V21.15m/s Tricuspid Valve TR Velocity2.11m/s [id number] Other Information Technically limited study due to patient laying flat on his back. Conclusion Sinus rhythm. Off axis views. Aortic root dilatation. Mild concentric LVH. Mild aortic sclerosis. No significant stenosis. Mild mitral annular calcification. Tricuspid and p ulmonic normal. Overall left ventricular systolic performance is preserved however there is mild anteroseptal hypokin esis. EF is about 50%. No significant Doppler anomalies. Mild TR. No pericardial effusion masses or vegetations.
[2024-12-14] MEDS: SODIUM CHLORIDE 0.9% 1,000 ML IV ONE (13:30)
[2024-12-14] MEDS ORDERED: REMDESIVIR 100mg in NS 230mL (3 DAY REGIMEN) IV SCH (15:00)
--- NOTE | 2024-12-14 18:53 | DVHDSRES ---
Discharge Summary Date of Admission Resident Creating Document: LUIS ARMANDO CALL RESIDENT Dec 13, 2024 at 03:10 Date of Discharge: Dec 14, 2024 Admitting Diagnosis Acute hypoxic respiratory failure secondary to pneumonia Sepsis due to hospital-acquired pneumonia/UTI/acute gastroenteritis Labs/Diagnostic Data: Laboratory Results Test 12/14/24 12:34 12/14/24 10:15 12/13/24 03:52 12/12/24 22:08 POC Glucose 124 mg/dl (70-106) White Blood Count 7.6 10^3/uL (4.4-10.8) Red Blood Count 4.55 10^6/uL (4.5-5.90) Hemoglobin 12.7 g/dL (13.5-17.5) Hematocrit 38.2 % (41.0-53.0) Mean Corpuscular Volume 84.1 fL (80.0-100.0) Mean Corpuscular Hemoglobin 27.9 pg (28.0-32.0) Mean Corpuscular Hemoglobin Concent 33.2 g/dL (32.0-36.0) Red Cell Distribution Width 17.4 % (11.8-14.3) Platelet Count 253 10^3/uL (140-450) Mean Platelet Volume 7.5 fL (6.9-10.8) Neutrophils (%) (Auto) 82.9 % (37.0-80.0) Lymphocytes (%) (Auto) 4.6 % (10.0-50.0) Monocytes (%) (Auto) 12.4 % (0.0-12.0) Eosinophils (%) (Auto) 0.0 % (0.0-7.0) Basophils (%) (Auto) 0.1 % (0.0-2.0) Neutrophils # (Auto) 6.3 10 ^3/uL (1.6-8.6) Lymphocytes # (Auto) 0.3 10 ^3/uL (0.4-5.4) Monocytes # (Auto) 0.9 10 ^3/uL (0-1.3) Eosinophils # (Auto) 0 10 ^3/uL (0-0.8) Basophils # (Auto) 0 10 ^3/uL (0-0.2) Nucleated Red Blood Cells 0.0 % Sodium Level 137 mmol/L (136-145) Potassium Level 4.0 mmol/L (3.5-5.1) Chloride Level 102 mmol/L (98-107) Carbon Dioxide Level 23 mmol/L (20-31) Anion Gap 12 (5-15) Blood Urea Nitrogen 26 mg/dL (9-23) Creatinine 1.03 mg/dL (0.700-1.30) Glomerular Filtration Rate Calc 74 mL/min (>90) BUN/Creatinine Ratio 25.2 (10.0-20.0) Serum Glucose 125 mg/dL (74-106) Calcium Level 8.2 mg/dL (8.7-10.4) Differential Total Cells Counted 100.0 (100) Neutrophils % (Manual) 86 (37.0-80.0) Band Neutrophils % (Manual) 0 Lymphocytes % (Manual) 5 (10.0-50.0) Monocytes % (Manual) 9 (0-12) Eosinophils % (Manual) 0 (0-7) Basophils % (Manual) 0 (0.0-2.0) Metamyelocytes % (manual) 0 Myelocytes % (Manual) 0 Promyelocytes % (Manual) 0 Blast Cells % (Manual) 0 Reactive Lymphocytes 0 Platelet Estimate Adequate Hemoglobin A1c 8.1 % A1C (<5.7) Total Bilirubin 0.4 mg/dL (0.2-1.0) Aspartate Amino Transferase (AST) 35 U/L (13-40) Alanine Aminotransferase (ALT) 20 U/L (7-40) Alkaline Phosphatase 92 U/L (46-116) C-Reactive Protein High Sensitivity 4.85 mg/dL (<1.0) B-Type Natriuretic Peptide 37.42 pg/mL (0-100) Total Protein 5.9 g/dL (5.7-8.2) Albumin 3.3 g/dL (3.2-4.8) Thyroid Stimulating Hormone (TSH) 1.73 uIU/mL (0.55-4.78) Urine Color Light-yellow (Yellow) Urine Clarity Clear (Clear) Urine pH 6.0 (5.0-9.0) Urine Specific [place] 1.011 (1.001-1.035) Urine Protein Negative (Negative) Urine Ketones Negative (Negative) Urine Blood Trace /uL (Negative) Urine Nitrite Negative (Negative) Urine Bilirubin Negative (Negative) Urine Urobilinogen Normal mg/dL (Negative) Urine Leukocyte Esterase Negative /uL (Negative) Urine RBC 2 /hpf (0 - 3) Urine Microscopic WBC 3 /HPF (0-3) Urine Squamous Epithelial Cells None seen /hpf (<5) Urine Bacteria None seen /hpf (None Seen) Urine Glucose Normal mg/dL (Normal) Urine Opiates Screen Neg (NEGATIVE) Urine Fentanyl Screen Neg (NEGATIVE) Urine Barbiturates Screen Neg (NEGATIVE) Urine Phencyclidine Screen Neg (NEGATIVE) Urine Amphetamines Screen Neg (NEGATIVE) Urine Benzodiazepines Screen Neg (NEGATIVE) Urine Cocaine Screen Neg (NEGATIVE) Urine Cannabinoids Screen Pos (NEGATIVE) Influenza Type A Antigen Negative (Negative) Influenza Type B Antigen Negative (Negative) SARS-CoV-2 Antigen (Rapid) Positive (NEGATIVE) Test 12/12/24 22:07 Lactic Acid Level 1.0 mmol/L (0.4-2.0) Magnesium Level 1.9 mg/dL (1.6-2.6) Other Laboratory Tests 12/14/24 10:15 Brief Hx & Hospital Course: Steffen Solis is a 79-year-old male who presented to the ED with progressive dyspnea (Functional Class IV), fever, lethargy, and confusion, 72 hours after discharge from a recent hospitalization for urosepsis treated with IV ertapenem via midline. 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 Social history notes he lives at home, denies tobacco and alcohol use, but UDS was positive for marijuana. On admission, he was hypoxic requiring oxygen via nasal cannula (3 L/min) and was diagnosed with acute hypoxic respiratory failure, sepsis secondary to hospital-acquired pneumonia and ESBL UTI, COVID-19 infection, metabolic encephalopathy, hypovolemic hyponatremia, and transaminitis. Management included IV ertapenem (since 12/11), remdesivir, dexamethasone 6 mg IV daily, oxygen therapy, and continuation of home medications (Keppra, clopidogrel, atorvastatin). Head CT showed no acute findings; echocardiogram was ordered and cultures (blood, urine, sputum, wound) were pending. During hospitalization, the patient developed hypotension requiring IV fluids and new-onset diarrhea. Despite counseling regarding critical condition and risks of transfer, the family insisted on leaving for another facility. The patient left Against Medical Advice (AMA) in a hemodynamically unstable state, oriented to self and place but not time, on oxygen therapy, and critically ill. He was advised to seek immediate care at the receiving facility or return to the ED if condition worsens and to continue home medications as previously prescribed. Patient lying in bed, in no acute distress General: Somnolent, cachectic, chirinos, afebrile, mucosae are moist Cardiovascular: Normal S1 and S2. No murmurs, gallops or rubs Respiratory: Regular ventilation mechanics. Coarse rhonchus in bilateral lung dai. Currently on oxygen therapy through nasal cannula at 3 L/min Abdomen: Soft, nontender, no organomegaly, normal bowel sounds MSK/skin: Mobilizes 4 limbs. Skin is dry and warm. Sacral wound stage two present on admission. Neurological: Oriented in 2 spheres (not time). No motor no sensitive deficits. Pupils are isocoric and reactive Case discussed with Dr Smart Operations or Procedures EXAM: CT HEAD WITHOUT CONTRAST INDICATION: ALOC TECHNIQUE: CT of the head without intravenous contrast. Radiation Dose : 1. Head: CT Dose: CTDI volume is 62.64 mGy. Dose-length product is 1232.47 mGy*cm The dose indicators for CT are the volume Computed Tomography (CT) Dose Index (CTDIvol) and the Dose Length Product (DLP), and are measured in units of mGy and mGy-cm, respectively. These indicators are not patient dose, but values generated from the CT scanner acquisition factors. The report includes radiation exposure data for exposures received during this examination. COMPARISON: None FINDINGS: Brain: No acute hemorrhage, mass effect, or cerebral edema. Extensive confluence periventricular white matter hypodensity with moderate to severe parenchymal volume loss. Foci of encephalomalacia within the left anterior frontal white matter, right occipital lobe, and left cerebellum CSF Spaces: Moderate symmetric enlargement. Bones/Soft Tissues: No acute findings. Orbits/Sinuses/Mastoids: No acute findings. Postsurgical changes of the anterior globes. IMPRESSION: 1. No acute intracranial abnormality. 2. 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 Condition at Discharge: Poor Final Diagnosis/Problems List Acute hypoxic respiratory failure secondary to pneumonia Sepsis due to hospital-acquired pneumonia/UTI/acute gastroenteritis Hospital-acquired multifocal pneumonia - COVID, rule out superimposed bacterial infection Metabolic encephalopathy secondary to sepsis ESBL UTI Hypovolemic hyponatremia Transaminitis Foleys for incontinent, BPH: ESBL UTI Ertepenam 12/11 contin ue Essential HTN Diabetes-uncontrolled (hemoglobin A1c 8.1%) Chronic back pain Iron deficiency normocytic anemia Dyslipidemia Carotid artery stenosis Sacral decubitus ulcer stage II - present on admission H/o Stroke with residual visual deficit and bed-bound H/o Seizures H/o left knee replacement Cannabinoid abuse Discharge Disposition: AMA Discharge Statement: "Patient was advised to return to the ER or call 911 if any headaches, dizziness, shortness of breath, chest pain, abdominal pain, bleeding, fevers, or worsening of medical condition. Patient was counseled about treatment plan, medications, possible side effects, patientverbalized understanding. All questions were answered to the best of my ability. This discharge took greater then 30 minutes in planning, reviewing documentation, counseling the patient, and discussing with other team members." ASSESSMENT ASSESSMENT Assessment Date of Service: Dec 14, 2024 Billing Provider: AARON SMART MD Common Visit Codes: 72819-NUI/OBS DISCH DAY >30min LUIS ARMANDO CALL RESIDENT Dec 14, 2024 18:53 AARON SMART MD Dec 20, 2024 21:56
== END 2024-12-14 14:50 | disposition left against medical advice (07) | DRG 871 ==
LOC: ER 20:48 → EDBD 20:48 → OVERFLOW 12-13 03:10 → EAST 12-13 14:53
PROVIDERS: ADMIT Student in an Organized Health Care Education/Training Program; ATTEND Student in an Organized Health Care Education/Training Program
PROC: XW033E5 Introduction of Remdesivir Anti-infective into Peripheral Vein, Percutaneous Approach, New Technology Group 5 (ICD-10-PCS; principal; 2024-12-13)
DX: A41.89 Other specified sepsis (principal); G93.41 Metabolic encephalopathy; J12.82 Pneumonia due to coronavirus disease 2019; U07.1 COVID-19; J96.01 Acute respiratory failure with hypoxia; E87.1 Hypo-osmolality and hyponatremia; N39.0 Urinary tract infection, site not specified; E86.1 Hypovolemia; L89.152 Pressure ulcer of sacral region, stage 2; I65.29 Occlusion and stenosis of unspecified carotid artery; R74.01 Elevation of levels of liver transaminase levels; E78.5 Hyperlipidemia, unspecified; F19.10 Other psychoactive substance abuse, uncomplicated; K52.9 Noninfective gastroenteritis and colitis, unspecified; N40.0 Benign prostatic hyperplasia without lower urinary tract symptoms; I10 Essential (primary) hypertension; G40.909 Epilepsy, unspecified, not intractable, without status epilepticus; E11.9 Type 2 diabetes mellitus without complications; Z96.652 Presence of left artificial knee joint; G89.29 Other chronic pain; M54.9 Dorsalgia, unspecified; D50.9 Iron deficiency anemia, unspecified; Z53.29 Procedure and treatment not carried out because of patient's decision for other reasons; Z86.73 Personal history of transient ischemic attack (TIA), and cerebral infarction without residual deficits; Z74.01 Bed confinement status
CPT/HCPCS: 36415; 70450; 71045; 80048; 80053; 80307; 81001; 82962; 83036; 83605; 83735; 83880; 84443; 85007; 85025; 85027; 86141; 87040; 87045; 87081; 87086; 87186; 87278; 87426; 87427; 87804; 93005; 93306; 96365; 99291; G0378; J1335; J1815; J2543